=== PATIENT | female | born 1995 | race Caucasian/White ===

== ENCOUNTER 2017-01-27 20:39 | Emergency (ER) | payer OTHER ==
[~2017-01-27] VITALS: Ht 162.6 cm; Wt 69.7 kg
[~2017-01-27 20:39] MED LIST: HUMSS SQ
[2017-01-27 20:42] VITALS: BP 145/83; PULSE 68; RESP 18; TEMP 98.2; O2SAT 100
--- NOTE | 2017-01-27 20:58 | PD ---
HPI Chief Complaint: Diabetic Time Seen by Provider: 20:55 Travel History International Travel<30 days: No Contact w/Intl Traveler<30days: No Traveled to known affect area: No History of Present Illness HPI This 21-year-old female is complaining of high blood sugar. She has been diabetic since 2006. She is on a combination of Humulin N and Humulin R. She ran out of her Humulin N tonight did not take it. Her blood sugars become quite high. She does not have any infection. His been no sore throat or cough. No vomiting. Her sugar at home was 390 PFSH Past Medical History Autoimmune Disease: No Blood Disorders: No Cardiovascular Problems: No Diabetes: Yes (INSULIN) Genitourinary: No Headaches: No Musculoskeletal: No Neurologic: Yes Psychiatric: No Respiratory: No Seizures: No Sickle Cell Disease: No ?: Not LMP: 12-29-16 Social History Alcohol Use: No Tobacco Use: No Substance Use: No Allergies-Medications (Allergen,Severity, Reaction): Coded Allergies: No Known Allergies (Verified , 01/27/17) Reported Meds & Prescriptions Reported Meds & Active Scripts Active Reported Humalog Inj (Insulin Human Lispro) 1,000 Unit/10 Ml Vial 1-9 Units SQ ACHS Max dose at bedtime:( )units; sugars< 70,(0)units; sugars 150-199,(1)unit; sugars 200-249,(3)units; sugars 250-299,(5)units; sugars 300-349,(7)units; sugars more than 349,(9)units. Humulin N Inj (Insulin Human NPH) 1,000 Unit/10 Ml Vial 29 Units SQ BIDAC Review of Systems General / Constitutional: No: Fever, Chills Eyes: No: Diploplia, Blurred Vision HENT: No: Headaches, Vertigo Cardiovascular: No: Chest Pain or Discomfort, Palpitations Respiratory: No: Cough, Shortness of Breath Gastrointestinal: No: Nausea, Vomiting Genitourinary: Positive: Frequency Skin: No Rash, No Itching Neurologic: No: Weakness Hematologic/Lymphatic: No: Easy Bruising Physical Exam Narrative GENERAL: Well-developed female SKIN: Focused skin assessment warm/dry. HEAD: Atraumatic. Normocephalic. EYES: Pupils equal and round. No scleral icterus. No injection or drainage. ENT: No nasal bleeding or discharge. Mucous membranes pink and moist. NECK: Trachea midline. No JVD. CARDIOVASCULAR: Regular rate and rhythm. No murmur appreciated. RESPIRATORY: No accessory muscle use. Clear to auscultation. Breath sounds equal bilaterally. GASTROINTESTINAL: Abdomen soft, non-tender, nondistended. Hepatic and splenic margins not palpable. MUSCULOSKELETAL: No obvious deformities. No clubbing. No cyanosis. No edema. NEUROLOGICAL: Awake and alert. No obvious cranial nerve deficits. Motor grossly within normal limits. Normal speech. PSYCHIATRIC: Appropriate mood and affect; insight and judgment normal. Data Data Last Documented VS Vital Signs Date Time Temp Pulse Resp B/P Pulse Ox O2 Delivery O2 Flow Rate FiO2 01/27/17 20:57 70 18 100 Room Air 01/27/17 20:42 98.2 145/83 Orders Sodium Chlor 0.9% 1000 Ml Inj (Ns 1000 M (01/27/17 21:00) Insulin Human Nph Inj (Novolin N Inj) (01/27/17 21:00) Insulin Human Regular Inj (Novolin R Inj (01/27/17 21:00) Complete Blood Count With Diff (01/27/17 20:56) Basic Metabolic Panel (Bmp) (01/27/17 20:56) Beta Hydroxybutyrate (Acetone) (01/27/17 20:56) Labs Laboratory Tests Test 01/27/17 21:14 White Blood Count 5.9 TH/MM3 Red Blood Count 4.51 MIL/MM3 Hemoglobin 13.6 GM/DL Hematocrit 40.9 % Mean Corpuscular Volume 90.7 FL Mean Corpuscular Hemoglobin 30.3 PG Mean Corpuscular Hemoglobin 33.3 % Concent Red Cell Distribution Width 13.5 % Platelet Count 235 TH/MM3 Mean Platelet Volume 7.5 FL Neutrophils (%) (Auto) 57.2 % Lymphocytes (%) (Auto) 35.8 % Monocytes (%) (Auto) 5.3 % Eosinophils (%) (Auto) 1.1 % Basophils (%) (Auto) 0.6 % Neutrophils # (Auto) 3.4 TH/MM3 Lymphocytes # (Auto) 2.1 TH/MM3 Monocytes # (Auto) 0.3 TH/MM3 Eosinophils # (Auto) 0.1 TH/MM3 Basophils # (Auto) 0.0 TH/MM3 CBC Comment DIFF FINAL Differential Comment Sodium Level 137 MEQ/L Potassium Level 3.9 MEQ/L Chloride Level 102 MEQ/L Carbon Dioxide Level 27.8 MEQ/L Anion Gap 7 MEQ/L Blood Urea Nitrogen 12 MG/DL Creatinine 0.82 MG/DL Estimat Glomerular Filtration 90 ML/MIN Rate Random Glucose 206 MG/DL Calcium Level 8.8 MG/DL B-Hydroxybutyrate 0.14 MMOL/L MDM Medical Decision Making Medical Screen Exam Complete: Yes Emergency Medical Condition: Yes Medical Record Reviewed: Yes Differential Diagnosis Differential includes hyperglycemia, diabetes, Narrative Course Her hemoglobin is 13 6. White count is 5.9. Glucose is 206 with beta hydroxybutyrate 0.4. She has been given some regular and N insulin. She is stable for discharge. She will give her additional insulin tomorrow morning. Diagnosis Primary Impression: Hyperglycemia Disposition: DISCHARGE HOME Condition: Stable Jonathan Alcantara MD Jan 27, 2017 20:58
[2017-01-27] MEDS ORDERED: SODIUM CHLOR 0.9% 1000 ML INJ 1,000 ML IV ONE (21:00)
[2017-01-27] MEDS ORDERED: INSULIN HUMAN NPH 1,000 UNITS/10 ML VIAL SQ ONE (21:00)
[2017-01-27] MEDS ORDERED: INSULIN HUMAN REGULAR 1,000 UNITS/10 ML VIAL SQ ONE (21:00)
[2017-01-27] MEDS ORDERED: INSU100V3 SQ (21:21)
[2017-01-27] MEDS ORDERED: HUMALOG SQ (21:21)
[2017-01-27 21:27] LABS: AUTOMATED NEUTROPHIL # 3.4 TH/MM3 (1.8-7.7); BASOPHIL % 0.6 % (0.0-2.0); EOSINOPHIL # 0.1 TH/MM3 (0-0.4); EOSINOPHIL % 1.1 % (0.0-4.0); HEMATOCRIT 40.9 % (35.0-46.0); HEMO FLAGS DIFF FINAL; LYMPH % 35.8 % (9.0-44.0); LYMPHOCYTE # 2.1 TH/MM3 (1.0-4.8); MEAN CELL VOLUME 90.7 FL (80.0-100.0); MEAN CORPUSCULAR HEMOGLOBIN 30.3 PG (27.0-34.0); MEAN CORPUSCULAR HGB CONC 33.3 % (32.0-36.0); MONO % 5.3 % (0.0-8.0); NEUT % 57.2 % (16.0-70.0); PLATELET COUNT 235 TH/MM3 (150-450); RED BLOOD COUNT 4.51 MIL/MM3 (4.00-5.30); RED CELL DISTRIBUTION WIDTH 13.5 % (11.6-17.2); WHITE BLOOD COUNT 5.9 TH/MM3 (4.0-11.0)
[2017-01-27 21:39] LABS: POTASSIUM 3.9 MEQ/L (3.5-5.1)
[2017-01-27 21:42] LABS: BICARBONATE 27.8 MEQ/L (21.0-32.0)
[2017-01-27 22:01] LABS: BETA-HYDROXYBUTYRATE 0.14 MMOL/L (0.00-0.39)
[2017-01-27 22:50] VITALS: BP 109/63
== END 2017-01-27 23:01 | disposition home or self-care (01) ==
LOC: PHED 20:39
DX: E11.65 Type 2 diabetes mellitus with hyperglycemia (principal); Z79.4 Long term (current) use of insulin
CPT/HCPCS: 80048; 82010; 85025; 96360; 96372; 99284; J1815; J7030

== ENCOUNTER 2017-04-20 13:18 | Emergency (ER) | payer OTHER ==
[~2017-04-20] VITALS: Ht 160 cm; Wt 63.0 kg
[~2017-04-20 13:18] MED LIST changes: +HUMALOG SQ; -HUMSS SQ; +INSU100V3 SQ
[2017-04-20 13:23] VITALS: BP 137/78; PULSE 66; RESP 16; TEMP 98.5; O2SAT 100
[2017-04-20] MEDS ORDERED: INSULIN NOVALOG SQ (13:33)
[2017-04-20] MEDS ORDERED: NOVONP2 SQ (13:33)
[2017-04-20] MEDS ORDERED: NOVALOG SQ (13:33)
[2017-04-20 13:41] LABS: BLOOD, URINE LARGE (NEG); GLUCOSE,URINE NEG (NEG); KETONE, URINE NEG (NEG); NITRITE,URINE NEG (NEG); PH, URINE 6.5 (5.0-8.5)
[2017-04-20 13:44] LABS: METHOD OF COLLECTION CLEAN CATCH; URINE COLOR YELLOW (YELLW/STRAW)
[2017-04-20 13:48] LABS: COMMENT (UR) CULT NOT INDICATED; CULTURE IF INDICATED CULT NOT INDICATED; RBC, URINE 0-3 /hpf (0-3); SQUAMOUS EPITHELIAL CELL URINE 0-5 /hpf (0-5); WBC, URINE 0-2 /hpf (0-5)
[2017-04-20] MEDS ORDERED: PHEN0.4T PO (13:56)
--- NOTE | 2017-04-20 13:56 | PD ---
HPI . Hematuria Chief Complaint: Complaint Time Seen by Provider: 13:29 Travel History International Travel<30 days: No Contact w/Intl Traveler<30days: No Traveled to known affect area: No History of Present Illness HPI This patient presents with a 2 day history of hematuria. It is associated with frequency but no dysuria. She states that she was recently treated for urinary tract infection with Macrobid. She finished her course of Macrobid about 10 days ago. She denies any flank pain. She denies any fever. She denies any nausea or vomiting. She states her last normal menstrual period was April 03 and that she has no concerns that this blood may be per vagina. She notes no exacerbating or relieving factors. The bleeding is mild. PFSH Past Medical History Autoimmune Disease: No Blood Disorders: No Cardiovascular Problems: No Diabetes: Yes (INSULIN) Patient Takes Glucophage: No Diminished Hearing: No Genitourinary: No Headaches: No Musculoskeletal: No Neurologic: Yes Psychiatric: No Respiratory: No Seizures: No Sickle Cell Disease: No ?: Not LMP: 04/03/17 Past Surgical History Other Surgery: No Social History Alcohol Use: No Tobacco Use: No Substance Use: No Allergies-Medications (Allergen,Severity, Reaction): Coded Allergies: No Known Allergies (Verified , 04/20/17) Reported Meds & Prescriptions Reported Meds & Active Scripts Active Reported [Novalog] 7 Units SQ HS Novolin N Inj (Insulin Human NPH) 1,000 Unit/10 Ml Vial 27 Units SQ HS [Insulin Novalog] 9 Units SQ DAILY Humulin N Inj (Insulin Human NPH) 1,000 Unit/10 Ml Vial 29 Units SQ DAILY Review of Systems Except as stated in HPI: all other systems reviewed are Neg General / Constitutional: No: Fever, Chills Gastrointestinal: No: Nausea, Vomiting Genitourinary: Positive: Frequency, Hematuria, No: Urgency, Dysuria, Flank Pain Physical Exam Narrative GENERAL: SKIN: Warm and dry. HEAD: Atraumatic. Normocephalic. EYES: Pupils equal and round. ENT: No nasal bleeding or discharge. Mucous membranes pink and moist. NECK: Trachea midline. CARDIOVASCULAR: Regular rate and rhythm. RESPIRATORY: No accessory muscle use. GASTROINTESTINAL: Abdomen soft, non-tender, nondistended. No CVA tenderness. MUSCULOSKELETAL: No obvious deformities. No edema. NEUROLOGICAL: Awake and alert. No obvious cranial nerve deficits. Motor grossly within normal limits. Normal speech. PSYCHIATRIC: Appropriate mood and affect; insight and judgment normal. Data Data Last Documented VS Vital Signs Date Time Temp Pulse Resp B/P (MAP) Pulse Ox O2 Delivery O2 Flow Rate FiO2 04/20/17 13:23 98.5 66 16 137/78 (97) 100 Orders Orders Urinalysis - C+S If Indicated (04/20/17 13:25) Ed Urine Pregnancytest Poc (04/20/17 13:25) Labs Laboratory Tests Test 04/20/17 13:30 Urine Collection Type CLEAN CATCH Urine Color YELLOW Urine Turbidity CLEAR Urine pH 6.5 Urine Specific [place] 1.006 Urine Protein NEG mg/dL Urine Glucose (UA) NEG mg/dL Urine Ketones NEG mg/dL Urine Occult Blood LARGE Urine Nitrite NEG Urine Bilirubin NEG Urine Leukocyte Esterase NEG Urine RBC 0-3 /hpf Urine WBC 0-2 /hpf Urine Squamous Epithelial Cells 0-5 /hpf Microscopic Urinalysis Comment CULT NOT INDICATED MDM Medical Decision Making Medical Screen Exam Complete: Yes Emergency Medical Condition: Yes Differential Diagnosis Final differential diagnosis of urinary symptoms includes but is not limited to UTI, kidney stone, pyelonephritis, bacterial vaginosis, yeast infection, urinary retention Narrative Course This patient presents with frequency and hematuria. She finished treatment for UTI 10 days ago. Laboratory Tests Test 04/20/17 13:30 Urine Collection Type CLEAN CATCH Urine Color YELLOW Urine Turbidity CLEAR Urine pH 6.5 Urine Specific [place] 1.006 Urine Protein NEG mg/dL Urine Glucose (UA) NEG mg/dL Urine Ketones NEG mg/dL Urine Occult Blood LARGE Urine Nitrite NEG Urine Bilirubin NEG Urine Leukocyte Esterase NEG Urine RBC 0-3 /hpf Urine WBC 0-2 /hpf Urine Squamous Epithelial Cells 0-5 /hpf Microscopic Urinalysis Comment CULT NOT INDICATED I will treat her with Pyridium and have her follow up with urology. Diagnosis Primary Impression: Hematuria Qualified Codes: R31.9 - Hematuria, unspecified Referrals: Ross Christianson MD Patient Instructions: Acute Hematuria (DC), General Instructions Med/Other Pt SpecificInfo: Prescription(s) given Scripts Phenazopyridine (Pyridium) 100 Mg Tab 200 MG PO Q8H Y for DYSURIA, #10 TAB 0 Refills Prov: Magi Leal MD 04/20/17 Disposition: 01 DISCHARGE HOME Condition: Stable Magi Leal MD Apr 20, 2017 13:56
[2017-04-21] MEDS ORDERED: NOVOLOGSS SQ ×2 (11:21→11:22)
== END 2017-04-20 14:40 | disposition home or self-care (01) ==
LOC: PHEFT 13:18
DX: R31.9 Hematuria, unspecified (principal); E11.9 Type 2 diabetes mellitus without complications; Z79.4 Long term (current) use of insulin
CPT/HCPCS: 81001; 84703; 99283